=== PATIENT | female | born 1950 | race Caucasian/White ===

== ENCOUNTER 2023-09-12 07:13 | Day surgery (SDC) | payer OTHER ==
[~2023-09-12] VITALS: Ht 154.9 cm; Wt 64.4 kg
[2023-09-12] MEDS ORDERED: SIMETHICONE 40 MG/0.6 ML ML ONE (07:47)
[2023-09-12] MEDS ORDERED: MIDAZOLAM HCL 5 MG/5 ML VIAL ONE (07:48)
[2023-09-12] MEDS ORDERED: MEPERIDINE 100 MG INJ. 100 MG/ML VIAL ONE (07:48)
[2023-09-12 12:56] VITALS: BP_SYST 170; PULSE 58; RESP 20; TEMP 97.3; O2SAT 97
== END 2023-09-12 09:55 | disposition home or self-care (01) ==
LOC: SDS 07:13 → SMU 07:20 → EDBD 08:00 → SDS 09:55
PROVIDERS: ATTEND Internal Medicine
DX: K59.00 Constipation, unspecified (principal); D12.0 Benign neoplasm of cecum; I10 Essential (primary) hypertension; M19.90 Unspecified osteoarthritis, unspecified site; K64.8 Other hemorrhoids; Z79.899 Other long term (current) drug therapy; Z80.0 Family history of malignant neoplasm of digestive organs
CPT/HCPCS: 45380; 88305; 99152; G0378; J2250; J2175